=== PATIENT | female | born 1995 | race Caucasian/White ===

== ENCOUNTER 2020-03-15 17:06 | Emergency (ER) | payer MEDICAID ==
[~2020-03-15] VITALS: Ht 170.2 cm; Wt 58.1 kg
[2020-03-15 17:16] VITALS: Ht 170.2 cm; Wt 58.1 kg
[2020-03-15 18:07] VITALS: BP 119/65
== END 2020-03-15 18:07 | disposition home or self-care (01) ==
LOC: ED 17:06
DX: S90.812A Abrasion, left foot, initial encounter (principal); F17.210 Nicotine dependence, cigarettes, uncomplicated; Z59.0 Homelessness; W57.XXXA Bitten or stung by nonvenomous insect and other nonvenomous arthropods, initial encounter; Y93.89 Activity, other specified; Y92.89 Other specified places as the place of occurrence of the external cause; Y99.8 Other external cause status
CPT/HCPCS: 90715